=== PATIENT | male | born 1995 | race Caucasian/White ===

== ENCOUNTER 2019-08-03 14:08 | Emergency (ER) | payer OTHER ==
[~2019-08-03] VITALS: Ht 160 cm; Wt 65.9 kg
[2019-08-03] MEDS ORDERED: ONDANSETRON 4 MG ORAL DISINTEGRATING TAB (Q0162 PER 1MG) PO ONE (15:15)
[2019-08-03] MEDS ORDERED: ACETAMINOPHEN 325 MG TAB PO ONE (15:45)
[2019-08-03 15:51] LABS: BASO % 0.2 % (0.0-1.0); EOS % 0.2 % (0.0-3.0); HEMATOCRIT 49.6 % (42.0-52.0); HEMOGLOBIN 16.5 g/dl (13.5-17.5); LYMPH # 0.3 10^3/uL (1.5-5.0); MEAN CORPUSCULAR HEMOGLOBIN 29.8 pg (27.0-33.0); MEAN CORPUSCULAR HGB CONC 33.3 g/dl (32.0-36.5); MEAN CORPUSCULAR VOLUME 89.7 fl (80.0-96.0); MONO # 0.6 10^3/uL (0.0-0.8); PLATELET COUNT, AUTOMATED 230 10^3/uL (150-450); RED BLOOD COUNT 5.53 10^6/uL (4.30-6.10)
[2019-08-03 15:52] LABS: NEUTROPHILS % 91.6 % (36.0-66.0); WHITE BLOOD COUNT 12.4 10^3/uL (4.0-10.0)
[2019-08-03 15:53] LABS: LYMPH % 2.5 % (24.0-44.0); MONO % 5.2 % (0.0-5.0); NEUTROPHILS # 11.4 10^3/uL (1.5-8.5)
[2019-08-03] MEDS ORDERED: ISOVUE-370 76% 100ML VIAL (Q9967) As Ordered ONE (16:37)
[2019-08-03] MEDS ORDERED: PANTOPRAZOLE 40MG INJ (PROTONIX) (C9113) IV ONE (16:45)
[2019-08-03] MEDS ORDERED: NS 1,000 ML IV ONE (16:45)
--- NOTE | 2019-08-03 17:30 | REPVR ---
PROCEDURE INFORMATION: Exam: CT Abdomen And Pelvis With Contrast Exam date and time: 08/03/2019 5:01 PM Age: 24 years old Clinical indication: Nausea and vomiting; Abdominal pain; Generalized; Additional info: Abd pain, n/v/d x 8 hours TECHNIQUE: Imaging protocol: Computed tomography of the abdomen and pelvis with intravenous contrast. Radiation optimization: All CT scans at this facility use at least one of these dose optimization techniques: automated exposure control; mA and/or kV adjustment per patient size (includes targeted exams where dose is matched to clinical indication); or iterative reconstruction. Contrast material: ISOVUE 370; Contrast volume: 100 ml; Contrast route: IV; COMPARISON: No relevant prior studies available. FINDINGS: Liver: There is a diffuse decrease in hepatic parenchymal density, consistent with fatty infiltration. Gallbladder and bile ducts: Normal. No calcified stones. No ductal dilation. Pancreas: Normal. No ductal dilation. Spleen: Normal. No splenomegaly. Adrenals: Normal. No mass. Kidneys and ureters: Normal. No hydronephrosis. Stomach and bowel: Mildly dilated small bowel loops in the mid and upper abdomen with subtle bowel wall thickening, findings consistent with enteritis. Appendix: No evidence of appendicitis. Intraperitoneal space: Unremarkable. No free air. No significant fluid collection. Vasculature: Unremarkable. No abdominal aortic aneurysm. Lymph nodes: Unremarkable. No enlarged lymph nodes. Bladder: Unremarkable as visualized. Reproductive: Unremarkable as visualized. Bones/joints: Unremarkable. No acute fracture. Soft tissues: Unremarkable. IMPRESSION: 1. There is a diffuse decrease in hepatic parenchymal density, consistent with fatty infiltration. 2. Mildly dilated small bowel loops in the mid and upper abdomen with subtle bowel wall thickening, findings consistent with enteritis. Electronically signed by: Rakesh Riley On 08/03/2019 17:30:10 PM
[2019-08-03] MEDS ORDERED: KETOROLAC 30 MG/ML VIAL (J1885) IV ONE (17:45)
[2019-08-03 18:47] LABS: INFLUENZA A AMPLIFICATION NEGATIVE (NEGATIVE); INFLUENZA B AMPLIFICATION NEGATIVE (NEGATIVE)
[2019-08-03] MEDS ORDERED: ONDA4TAB6 PO (20:11)
[2019-08-03 20:26] VITALS: BP 125/58
== END 2019-08-03 20:50 | disposition home or self-care (01) ==
LOC: M ED 14:08
DX: A08.4 Viral intestinal infection, unspecified (principal); Z20.89 Contact with and (suspected) exposure to other communicable diseases; R11.2 Nausea with vomiting, unspecified; R19.7 Diarrhea, unspecified; K92.0 Hematemesis; R10.12 Left upper quadrant pain; R10.32 Left lower quadrant pain
CPT/HCPCS: 74177; 80047; 85025; 87502; 87880; 96361; 96374; 96375; 99284; C9113; J1885; Q0162; Q9967